=== PATIENT | female | born 1960 | race Caucasian/White ===

== ENCOUNTER 2024-09-12 20:16 | Emergency (ER) | payer OTHER ==
[~2024-09-12] VITALS: Ht 154.9 cm; Wt 82.0 kg
[2024-09-12 20:19] VITALS: TEMP 36.6; O2SAT 99
[2024-09-12] MEDS: TRANEXAMIC ACID 1,000MG/10ML TP ONE (21:55)
[2024-09-12 22:20] VITALS: BP 146/74; PULSE 107; RESP 16; O2SAT 98
== END 2024-09-12 22:21 | disposition home or self-care (01) ==
LOC: ER 20:16
DX: R04.0 Epistaxis (principal); Z88.1 Allergy status to other antibiotic agents; Z88.2 Allergy status to sulfonamides
CPT/HCPCS: 99283; Z7610 ×2